=== PATIENT | male | born 1950 | race Caucasian/White ===

== ENCOUNTER 2017-07-30 09:08 | Outpatient (CLI) | payer MEDICARE, OTHER | END 2017-07-30 09:09 | disposition critical access hospital (66) | LOC: EMS 09:08 | PROVIDERS: ATTEND Surgery | DX: I46.9 Cardiac arrest, cause unspecified (principal) | CPT/HCPCS: A0425; A0433 ==

== ENCOUNTER 2017-07-30 09:20 | Emergency (ER) | payer MEDICARE, OTHER ==
[2017-07-30 09:44] VITALS: BP 52/20
--- NOTE | 2017-07-30 09:53 | ED Physician Documentation ---
PD HPI CPR - Stated complaint Stated Complaint: CPR - Chief complaint Chief Complaint: Cardiac - History obtained from History obtained from: Family, EMS - History of Present Illness Preceding symptoms: Unknown Witnessed: Arrest not witnesssed Fall: Fell down EMS findings: Unresponsive, Pulseless Treatment SHOE STAMPER: CPR, Intubated, Epi, IV Advanced directive: No advanced directive - Additional information Additional information: The patient is 66-year-old male with a history of pancreatic disease, status post partial pancreatic resection, who arrives via ambulance with CPR in progress after a syncopal episode and subsequent arrest. He and 2 sisters are visiting here from [facility], when the patient passed out in the bathroom this morning. His sisters heard him fall and found to be initially unresponsive. Medics arrived and initiated CPR. He briefly regained consciousness before passing out with pulselessness. CPR was resumed, epinephrine was administered, and he was intubated. He regained pulses for a brief period before again becoming pulseless. He was given a second milligram of epinephrine prior to his arrival in the emergency department. He has had CPR for approximately 20 minutes by the time of his arrival in the emergency department. On initial assessment he is pulseless, pupils are fixed and dilated , he is easily ventilated by bag valve endotracheal tube, and has equal breath sounds bilaterally. Quick look ultrasound for cardiac activity reveals cardiac motion without evidence of pericardial effusion. Review of Systems Unable to obtain: Unresponsive, Intubated PD PAST MEDICAL HISTORY - Past Medical History GI: Pancreatitis - Past Surgical History General: Other (Partial pancreatic resection) - Social History Does the pt smoke?: Yes Smoking Status: Current every day smoker PD ED PE NORMAL - Vitals Vital signs reviewed: Yes - General General: Other (CPR in progress) - HEENT HEENT: Other (endotracheal tube in place) - Neck Neck: Other (JVD) - Cardiac Cardiac: Other (Pulses with CPR) - Respiratory Respiratory: Other (Equal breath sounds, bags easily.) - Abdomen Abdomen: Soft, Other (umbulical hernia noted) - Extremities Extremities: No edema - Neuro Neuro: Other (Comatose) Results - Vitals Vitals: Vital Signs - 24 hr 07/30/17 07/30/17 07/30/17 09:24 09:31 09:32 Heart Rate 139 H 123 H 107 H Respiratory 18 20 16 Rate Blood Pressure 144/103 H 92/29 L 73/19 L O2 Saturation 86 L 35 L 10/06/17 10/06/17 10/06/17 09:37 09:39 09:43 Heart Rate 106 H 113 H Respiratory 39 H 18 Rate Blood Pressure 140/19 H 71/22 L 52/20 L O2 Saturation 54 L Oxygen O2 Source Non-rebreather mask PD MEDICAL DECISION MAKING - ED course Complexity details: d/w family ED course: The patient after more than 45 minutes of CPR after a syncopal episode with pulseless arrest. He received a total of 9 mg of epinephrine and 2 L normal saline, and would occasionally regain pulses after administration of epinephrine. He remained comatose with fixed and dilated pupils and exhibited no respiratory effort. After the last dose of epinephrine there was no cardiac response, and bedside ultrasound revealed cardiac standstill. Time of was announced at 9:45. I discussed resuscitative efforts with his 2 sisters, who were at the bedside. Departure - Departure Disposition: 20 Discharge Date/Time: 07/30/17 11:51
== END 2017-07-30 11:51 | disposition expired ==
LOC: EDBD → ED 09:20
DX: I46.9 Cardiac arrest, cause unspecified (principal); R55 Syncope and collapse; F17.200 Nicotine dependence, unspecified, uncomplicated; Z86.39 Personal history of other endocrine, nutritional and metabolic disease
CPT/HCPCS: 92950; 99283